=== PATIENT | female | born 1950 | race Caucasian/White ===

== ENCOUNTER → 2017-08-22 | Outpatient (CLI) | payer MEDICARE ==
[2017-08-22 20:24] LABS: CALCIUM 8.2 mg/dL (8.4-10.5); CARBON DIOXIDE 29.6 mmol/L (20.0-32)
== END | disposition home or self-care (01) ==
LOC: LAB 19:17
PROVIDERS: ATTEND Family Medicine
DX: R60.9 Edema, unspecified (principal)
CPT/HCPCS: 80048